=== PATIENT | female | born 1975 | race Caucasian/White ===

== ENCOUNTER 2020-11-12 12:53 | Outpatient (CLI) | payer BC | END 2020-11-12 12:54 | disposition home or self-care (01) | LOC: CSHMAMMO 12:53 | PROVIDERS: ATTEND Obstetrics & Gynecology | DX: N64.89 Other specified disorders of breast (principal) | CPT/HCPCS: G0279 ==

== ENCOUNTER 2021-03-20 13:25 | Day surgery (SDC) | payer BC | END 2021-03-20 15:05 | disposition home or self-care (01) | LOC: CSHSDC/OP 13:25 | PROVIDERS: ATTEND Internal Medicine Hematology & Oncology | DX: Z23 Encounter for immunization (principal); U07.1 COVID-19 | CPT/HCPCS: 96365; J3490; M0243; Q0244 ==